=== PATIENT | female | born 1980 | race Caucasian/White ===

== ENCOUNTER 2018-05-07 15:36 | Emergency (ER) | payer OTHER ==
[2018-05-07 15:46] VITALS: BP 114/65; PULSE 121; TEMP 101; BMI 29.9
[2018-05-07] MEDS ORDERED: ACETAMINOPHEN 325 MG TABLET (FP) PO ONE (15:46)
--- NOTE | 2018-05-07 15:46 | PDOC ---
Rapid Medical Evaluation Medical Evaluation: I have performed a brief in-person evaluation of this patient. The patient presents with a chief complaint of: Hx of asthma (never intubated), c/o SOB and wheezing since yesterday; went to today and was given 3 neb treatments and Solumedrol 60 mg IM but not feeling any better; also c/o dry cough Pertinent physical exam findings: In NAD, +diffuse wheezing I have ordered the following: Duoneb, CXR, Tylenol, Flu/RSV The patient will proceed to the ED for further evaluation. 05/07/18 15:41
[2018-05-07] MEDS ORDERED: ALBUTEROL SO4 2.5/IPRATROPIUM 0.5 INH SOL 3 ML VIAL.NEB. NEB ONE ×3 (15:48→18:10)
[2018-05-07] MEDS ORDERED: ACETAMINOPHEN 325 MG TABLET (FP) ONE ×2 (15:56→19:14)
--- NOTE | 2018-05-07 18:02 | PDOC ---
History of Present Illness - General History Source: Patient Exam Limitations: No Limitations - History of Present Illness Initial Comments: 05/07/18 18:00 37 yr old woman with asthma(no ICU intubations) presents with dry cough and shortness of breath since yesterday a/w fevers. She tried using her albuterol inhaler yesterday and this morning without any relief. She went to an urgent care center and was treated with duonebs and IM prednisone 40mg and sent home with medrol dose pack. Her symptoms worsened at home and she presented to the ED for further evaluation. denies sick contacts Pmhx: asthma controlled on IH Surghx: denies Sochx: denies smoking, etoh and drug use <Roberto Mason - Last Filed: 05/07/18 21:46> <Amanda Obrien - Last Filed: 05/08/18 00:48> - General Chief Complaint: Asthma Stated Complaint: Shortness of breath Time Seen by Provider: 05/07/18 15:41 Past History - Past Medical History Asthma: Yes COPD: No Dialysis: No Hypercholesterolemia: No - Surgical History Cholecystectomy: No - Immunization History Immunization Up to Date: No - Suicide/Smoking/Psychosocial Hx Smoking History: Never smoked Have you smoked in the past 12 months: No Information on smoking cessation initiated: No Hx Alcohol Use: No Drug/Substance Use Hx: No <Roberto Mason - Last Filed: 05/07/18 21:46> <Amanda Obrien - Last Filed: 05/08/18 00:48> - Past Medical History Allergies/Adverse Reactions: Allergies Allergy/AdvReac Type Severity Reaction Status Date / Time No Known Allergies Allergy Verified 05/07/18 15:46 *Physical Exam - Vital Signs Last Vital Signs Temp Pulse Resp BP Pulse Ox 101.0 F H 121 H 22 H 114/65 93 L 05/07/18 15:42 05/07/18 15:42 05/07/18 15:42 05/07/18 15:42 05/07/18 15:42 <Roberto Mason - Last Filed: 05/07/18 21:46> - Vital Signs Last Vital Signs Temp Pulse Resp BP Pulse Ox 101.0 F H 121 H 22 H 114/65 93 L 05/07/18 15:42 05/07/18 15:42 05/07/18 15:42 05/07/18 15:42 05/07/18 15:42 <Amanda Obrien - Last Filed: 05/08/18 00:48> Moderate Sedation - Procedure Monitoring Vital Signs: Procedure Monitoring Vital Signs Temperature 101.0 F H 05/07/18 15:42 Pulse Rate 121 H 05/07/18 15:42 Respiratory Rate 22 H 05/07/18 15:42 Blood Pressure 114/65 05/07/18 15:42 O2 Sat by Pulse Oximetry (%) 93 L 05/07/18 15:42 <Roberto Mason - Last Filed: 05/07/18 21:46> - Procedure Monitoring Vital Signs: Procedure Monitoring Vital Signs Temperature 101.0 F H 05/07/18 15:42 Pulse Rate 121 H 05/07/18 15:42 Respiratory Rate 22 H 05/07/18 15:42 Blood Pressure 114/65 05/07/18 15:42 O2 Sat by Pulse Oximetry (%) 93 L 05/07/18 15:42 <Amanda Obrien - Last Filed: 05/08/18 00:48> ED Treatment Course - LABORATORY CBC & Chemistry Diagram: 05/07/18 19:29 05/07/18 19:29 - ADDITIONAL ORDERS Additional order review: Laboratory Results 05/07/18 16:40 Urine HCG, Qual Negative - Medications Given in the ED: ED Medications Discontinued Medications Generic Name Dose Route Start Last Admin Trade Name Anahi PRN Reason Stop Dose Admin Acetaminophen 650 mg 05/07/18 15:46 05/07/18 15:58 Tylenol - PO 05/07/18 15:47 650 mg ONCE ONE Administration Albuterol/Ipratropium 1 amp 05/07/18 15:48 05/07/18 15:54 Duoneb - NEB 05/07/18 15:49 1 amp ONCE ONE Administration <Roberto Mason - Last Filed: 05/07/18 21:46> - LABORATORY CBC & Chemistry Diagram: 05/07/18 19:29 05/07/18 19:29 - ADDITIONAL ORDERS Additional order review: Laboratory Results 05/07/18 05/07/18 19:29 16:40 Sodium 136 Potassium 3.8 Chloride 104 Carbon Dioxide 22 Anion Gap 10 BUN 11 Creatinine 0.9 Creat Clearance w eGFR > 60 Random Glucose 143 H Calcium 8.7 Magnesium 1.9 Total Bilirubin 0.4 AST 14 L ALT 20 Alkaline Phosphatase 71 Total Protein 8.0 Albumin 4.2 Urine HCG, Qual Negative 05/07/18 19:29 RBC 4.70 MCV 86.0 MCHC 34.5 RDW 13.7 MPV 8.0 Neutrophils % 95.2 H Lymphocytes % 2.6 L Monocytes % 1.8 L Eosinophils % 0.0 Basophils % 0.4 - Medications Given in the ED: ED Medications Discontinued Medications Generic Name Dose Route Start Last Admin Trade Name Anahi PRN Reason Stop Dose Admin Acetaminophen 650 mg 05/07/18 15:46 05/07/18 15:58 Tylenol - PO 05/07/18 15:47 650 mg ONCE ONE Administration Albuterol/Ipratropium 1 amp 05/07/18 15:48 05/07/18 15:54 Duoneb - NEB 05/07/18 15:49 1 amp ONCE ONE Administration Magnesium Sulfate 2 gm 05/07/18 18:13 05/07/18 19:46 Magnesium Sulfate IVPB 05/07/18 18:14 2 gm ONCE ONE Administration Methylprednisolone Sodium Succinate 85 mg 05/07/18 20:39 05/07/18 21:19 Solu-Medrol - IVPUSH 05/07/18 20:40 85 mg ONCE ONE Administration <Amanda Obrien - Last Filed: 05/08/18 00:48> Medical Decision Making - Medical Decision Making 05/07/18 18:15 37 yr old woman with asthma presents with sob and fever. was sat'ing at 95% at the earlier today currently 93% on RA ordered duonebs, 2gm mag, and 85mg of prednisone to equal 125mg for today since she received 40mg earlier at the basic labs. flu swab neg, upreg negative. pending cxy read. likely viral syndrome causing asthma exacerbation 05/07/18 21:34 chest xray without acute lung pathology. labs without leucocytosis, electrolyte abnormality, MARTÍNEZ or abnormal LFT's pt has received duonebs, and solumedrol 05/07/18 21:46 receiving mag sulf now, BP 120/59 HR 92, sat 90-94% on RA. continues to have wheezing. labs without anemia, leucocytosis, electrolyte abnormalities. <Roberto Mason - Last Filed: 05/07/18 21:46> *DC/Admit/Observation/Transfer <Neo Masonmarquise - Last Filed: 05/07/18 21:46> <MicahAmanda Knutson - Last Filed: 05/08/18 00:48> Diagnosis at time of Disposition: Cough Fever Qualifiers: Fever type: unspecified Qualified Code(s): R50.9 - Fever, unspecified Acute asthma exacerbation Qualifiers: Asthma severity: moderate Asthma persistence: unspecified Qualified Code(s): J45.901 - Unspecified asthma with (acute) exacerbation - Discharge Dispostion Disposition: HOME Condition at time of disposition: Stable - Prescriptions Prescriptions: Albuterol Sulfate Inhaler - [Ventolin Hfa Inhaler -] 1 - 2 inh PO Q4H PRN #1 inhaler MDD 1 PRN Reason: Wheezing - Patient Instructions Printed Discharge Instructions: DI for Asthma -- Adult Additional Instructions: PLEASE [facility] TAKE THE STEROIDS ALREADY PRESCRIBED TO YOU FOLLOW UP WITH YOUR REGULAR PHYSICIAN RETURN FOR ANY WORSENING SYMPTOMS
[2018-05-07] MEDS ORDERED: ALBUTEROL SO4 0.083% IH SOL 2.5 MG/3 ML VIAL.NEB. NEB ONE (18:10)
[2018-05-07] MEDS ORDERED: MAGNESIUM SULF 50% (8.12 MEQ/2 ML-1 GM VIAL) IVPB ONE (18:13)
--- NOTE | 2018-05-07 18:16 | PDOC ---
Attending Attestation - HPI HPI: 05/07/18 18:30 The patient is a 37 year old female with a past medical history of asthma (well controlled with inhaler) who presents to the emergency department for evaluation of shortness of breath. Patient reports shortness of breath with associated symptoms of dry cough and fever since yesterday. She reports using albuterol pump multiple times yesterday with no alleviation to her symptoms. Patient reports visiting urgent care today which she received 40mg prednisone IM and duoneb treatments, but states her symptoms worsened, prompting her to visit the ED for further evaluation. - Physicial Exam PE: wnwd 37 yo female in no acute distress head ncat Heart (+)tachycardic lungs (+)Scattered expiratory wheezing in all lung yeager abd soft,nontender ext no e/c/c, MAEx4 neuro A&Ox3 - Medical Decision Making 05/07/18 18:30 Documentation prepared by Citlali Hopkins, acting as director medical science for Amanda Obrien MD. <Citlali Hopkins - Last Filed: 05/07/18 18:30> - Resident Resident Name: Roberto Mason - ED Attending Attestation I have performed the following: I have examined & evaluated the patient, The case was reviewed & discussed with the resident, I agree w/resident's findings & plan, Exceptions are as noted - HPI HPI: 05/07/18 18:15 37 yo female p/w fever,dry cough and wheezing. [facility] asthma - Medical Decision Making 05/07/18 18:15 neg influenza swab cxr no infiltrates pt seen at urgent carer today and given 40 mg of IM prednisone 05/08/18 00:27 Patient was reassessed and she has no wheezing at this time. Lungs are clear to auscultation bilaterally Patient is comfortable going home and will take the steroids, that have already been prescribed to her. She stated that she needed more albuterol and this is a prescribed to her pharmacy. Impression asthma exacerbation, upper respiratory infection, fever. Patient is in no acute distress at this time, her lungs are clear, discharged home <Amanda Obrien - Last Filed: 05/08/18 00:28> NIH Stroke Scale - Last Known Well Date/Time & Onset Date Last Known Well: 05/07/18 (wrong chart) Time Last Known Well: 21:49 (wrong chart) <Amanda Obrien - Last Filed: 05/08/18 00:28>
[2018-05-07] MEDS ORDERED: MAGNESIUM 1GM/D5W - 1 GM/100 ML IVPB IVPB ONE (19:15)
[2018-05-07 19:47] LABS: BASO % 0.4 % (0-2.0); HEMATOCRIT 40.4 % (32.4-45.2); LYMPH % 2.6 % (8-40); MCH 29.7 pg (25.7-33.7); MCHC 34.5 g/dl (32.0-36.0); MONO % 1.8 % (3.8-10.2); NEUT % 95.2 % (42.8-82.8); PLATELET COUNT 264 K/MM3 (134-434); RDW 13.7 % (11.6-15.6); WHITE BLOOD COUNT 8.7 K/mm3 (4.0-10.0)
[2018-05-07 20:23] LABS: ALBUMIN 4.2 g/dl (3.4-5.0); ALK PHOS 71 U/L (45-117); ANION GAP 10 MMOL/L (8-16); BILIRUBIN,TOTAL 0.4 mg/dL (0.2-1); BLOOD UREA NITROGEN 11 mg/dL (7-18); CALCIUM 8.7 mg/dL (8.5-10.1); CHLORIDE 104 mmol/L (98-107); CO2 22 mmol/L (21-32); CREATININE 0.9 mg/dL (0.55-1.3); GLUCOSE,RANDOM 143 mg/dL (74-106); MAGNESIUM 1.9 mg/dL (1.8-2.4); POTASSIUM 3.8 mmol/L (3.5-5.1); SGOT/AST 14 U/L (15-37); SGPT/ALT 20 U/L (13-61); SODIUM 136 mmol/L (136-145)
[2018-05-07] MEDS ORDERED: methylPREDNISolone NA SUCC 125 MG/2 ML VIAL IVPUSH ONE (20:39)
[2018-05-07] MEDS ORDERED: methylPREDNISolone NA SUCC 125 MG/2 ML VIAL ONE (21:12)
[2018-05-07 21:14] LABS: PLATELET ESTIMATE ADEQUATE
[2018-05-08] MEDS ORDERED: methylPREDNISolone NA SUCC 125 MG/2 ML VIAL IVPUSH ONE (18:14)
== END 2018-05-08 00:58 | disposition home or self-care (01) ==
LOC: JER 15:36
PROC: 3E0F7GC Introduction of Other Therapeutic Substance into Respiratory Tract, Via Natural or Artificial Opening (ICD-10-PCS; principal; 2018-05-07)
PROC: 3E033GC Introduction of Other Therapeutic Substance into Peripheral Vein, Percutaneous Approach (ICD-10-PCS; 2018-05-07)
PROC: 3E0333Z Introduction of Anti-inflammatory into Peripheral Vein, Percutaneous Approach (ICD-10-PCS; 2018-05-07)
DX: J45.901 Unspecified asthma with (acute) exacerbation (principal); B34.9 Viral infection, unspecified
CPT/HCPCS: 36415; 71046-TC-FY; 80053; 83735; 84703; 85025; 87804; 87807; 99281-25